=== PATIENT | female | born 1960 | race Caucasian/White ===

== ENCOUNTER → 2025-02-13 08:52 | Outpatient (REF) | payer OTHER, SELFPAY | LOC: HWRAD 08:52 | PROVIDERS: ATTENDING PHYSICIAN Nurse Practitioner Family | DX: M54.42 Lumbago with sciatica, left side (principal); M25.552 Pain in left hip | CPT/HCPCS: 72110; 73502 ==

== ENCOUNTER → 2025-04-27 10:35 | Outpatient (REF) | payer OTHER, SELFPAY | LOC: WDC 10:35 | PROVIDERS: ATTENDING PHYSICIAN Surgery; FAMILY PHYSICIAN Family Medicine | DX: R92.8 Other abnormal and inconclusive findings on diagnostic imaging of breast (principal) | CPT/HCPCS: 76642; 77062; 77066 ==

== ENCOUNTER → 2025-10-12 08:54 | Outpatient (REF) | payer BC, SELFPAY ==
[2025-10-12 10:17] LABS: ALT (SGPT) 39 U/L (0-35); AST (SGOT) 36 U/L (14-36); Albumin 4.5 g/dl (3.5-5.0); Alkaline Phosphatase 53 U/L (38-126); HDL Cholesterol 92 mg/dl; LDL Cholesterol, Calculated 144 mg/dl; Total Protein 7.5 g/dl (6.3-8.2); Very Low Density Lipoprotein 12 mg/dl (0-30)
== END ==
LOC: REG 08:54
PROVIDERS: ATTENDING PHYSICIAN Nurse Practitioner Family
DX: R79.89 Other specified abnormal findings of blood chemistry (principal)
CPT/HCPCS: 36415; 80061; 80076